=== PATIENT | male | born 1990 | race Caucasian/White ===

== ENCOUNTER 2016-12-16 05:30 | Emergency (ER) | payer OTHER ==
[~2016-12-16] VITALS: Ht 182.9 cm; Wt 75.9 kg
[2016-12-16 05:30] VITALS: TEMP 37; Ht 182.9 cm; Wt 75.9 kg
[~2016-12-16 05:30] MED LIST: DIPH25CA37 PO; MELA1TAB3 PO; MULT-506 PO; OMEGCAP2 PO
[2016-12-16 06:11] LABS: HEMATOCRIT 47.1 % (42-52); MEAN CORPUSCULAR HEMOGLOBIN 32.7 pg (25-34); MEAN CORPUSCULAR HGB CONC 34.8 g/dl (32-36); MEAN PLATELET VOLUME 9.7 fL (7.4-10.4); PLATELET COUNT 214 K/uL (130-400); RED BLOOD COUNT 5.01 M/uL (4.7-6.1); WHITE BLOOD COUNT 7.96 K/uL (4.8-10.8)
--- NOTE | 2016-12-16 06:12 | EMERGENCY ROOM VISIT NOTE ---
History Report prepared by Raquel: Zuleika Alvarado Under the Supervision of: Dr. Sobeida Martinez D.O. First contact with patient: 05:44 Chief Complaint: ALTERED MENTAL STATUS Stated Complaint: ALTERED MENTAL STATUS History of Present Illness The patient is a 26 year old male who presents to the Emergency Room with complaints of a sudden altered mental status that occurred prior to arrival. The patient states that he is unsure what happened this morning. He states that he used LSD this morning, noting that he has used it in the past. The patient denies any other drug use this evening. He does note alcohol use this morning. The patient denies any trauma. He states that this evening he was playing video games. The patient states that he is unemployed and does not go to school. Per EMS the patient's fiance was concerned about her safety around the patient so she called 911 for further assistance. EMS notes that the patient was out of control and abusive towards his fiance. EMS reports that the patient's PBT was below .08 and appeared to be under the influence of other drugs. EMS additionally notes that the patient's fiance was not willing to stay with the patient during his altered state. The patient states that he does not believe he was abusive towards his fiance this evening. He denies any abdominal pain or any other pain. The history is limited due to the patient's drug intoxication. Source of History: patient, EMS History Limited By: intoxication (drug) Onset: prior to arrival Position: other (global) Quality: other (altered mental status) Timing: other (sudden) Review of Systems The history and ROS are limited secondary to the patient's drug intoxication. Past Medical & Surgical Medical history is unobtainable secondary to the patient's drug intoxication. Family History The family history is unobtainable secondary to the patient's drug intoxication. Social History Smoking Status: Never Smoker Drug Use: other (LSD) Marital Status: in relationship Occupation Status: unemployed Current/Historical Medications No Active Prescriptions or Reported Meds Allergies Coded Allergies: NO KNOWN DRUG ALLERGIES (Verified Allergy, Unknown, ., 08/28/15) Physical Exam Vital Signs Date Time Temp Pulse Resp B/P Pulse Ox O2 Delivery O2 Flow Rate FiO2 12/16/16 06:41 103 18 162/112 98 Room Air 12/16/16 05:30 37.0 120 18 174/125 98 Room Air Physical Exam General: Slightly confused, smells of alcohol, cooperative HEENT: Head - normocephalic and atraumatic Pupils 6 mm and reactive to light. Extraocular eye muscles are intact, and sclera are anicteric. Nose - moist nasal mucosa without discharge. Mouth - moist buccal mucosa. Oropharynx is nonerythematous and there is no tonsillar exudate or edema noted. Neck: Supple; no JVD, nuchal rigidity, cervical lymphadenopathy. Heart: Tachycardic rate and regular rhythm. There is a normal S1 and S2 with no murmurs, clicks, or gallops appreciated. Lungs: Clear to auscultation bilaterally with no wheezes, rales, or rhonchi. Abdomen: Soft, completely nontender, nondistended, with good bowel sounds. There are no palpable pulsatile masses or hepatosplenomegaly. There is no guarding, rigidity, or rebound noted. Extremities: No evidence of cyanosis, clubbing, or edema. There are easily palpable peripheral pulses. Skin: Multiple tattoos, warm and dry with good turgor and no rashes. Medical Decision & Procedures Laboratory Results 12/16/16 06:00 12/16/16 06:00 Test 12/16/16 06:00 Red Blood Count 5.01 M/uL (4.7-6.1) Mean Corpuscular Volume 94.0 fL (80-100) Mean Corpuscular Hemoglobin 32.7 pg (25-34) Mean Corpuscular Hemoglobin Concent 34.8 g/dl (32-36) RDW Standard Deviation 41.4 fL (36.4-46.3) RDW Coefficient of Variation 12.1 % (11.5-14.5) Mean Platelet Volume 9.7 fL (7.4-10.4) Anion Gap 8.0 mmol/L (3-11) Est Creatinine Clear Calc Drug Dose 120.3 ml/min Estimated GFR () 120.5 Estimated GFR (Non- 103.9 BUN/Creatinine Ratio 9.9 (10-20) Calcium Level 8.7 mg/dl (8.5-10.1) Salicylates Level < 1.7 mg/dl (2.8-20) Urine Opiates Screen NEG (NEG) Urine Methadone, Qualitative NEG (NEG) Acetaminophen Level < 2 ug/ml (10-30) Urine Barbiturates NEG (NEG) Ur Amphetamine/Methamphetamine NEG (NEG) MDMA (Ecstasy) Screen NEG (NEG) Urine Benzodiazepines Screen NEG (NEG) Urine Cocaine Metabolite NEG (NEG) Urine Marijuana (THC) NEG (NEG) Ethyl Alcohol mg/dL 76.0 mg/dl (0-3) Laboratory results per my review. ED Course 0549: Past medical records reviewed. The patient was evaluated in room B4B. A complete history and physical exam was performed. Labs were drawn as above 0629: I reevaluated the patient and he is much more coherent. His tox screen came back positive for PCP and he states that he took 3 MEO-PCP this evening that he buys online. The patient states that he developed a different high than he typically does. With further questioning, the patient admits to being depressed and having suicidal thoughts at times but states that he would never act upon them. I discussed the case with the pillowcase folder and the patient will be evaluated from a psychiatric standpoint. 0630: The patient was signed out to Dr. Rausch at change of shift. Medical Decision The patient is a 26 year old male who presents to the ED with an altered mental status. Differential diagnosis includes alcohol intoxication, LSD abuse, other drug use, hypoglycemia, head injury. Lab interpretation: alcohol was 76, tox screen positive for PCP, Tylenol and aspirin levels are negative, normal renal function, glucose 111, normal white blood cell count. This is a 26-year-old male patient who was brought to the emergency department tonight after taking PCP and acting erratically. He denies any trauma. Initially he described using LSD. When his tox screen came back positive for PCP, he explained that he was using PCP that he purchased on the Internet. The patient was cooperative here in the emergency department. He does describe being depressed and having some suicidal thoughts but no plans to act upon them. At this time, the patient will be evaluated by psychiatry. The case was signed out to Dr. John. Impression Primary Impression: Drug overdose Scribe Attestation The scribe's documentation has been prepared under my direction and personally reviewed by me in its entirety. I confirm that the note above accurately reflects all work, treatment, procedures, and medical decision making performed by me. Departure Information Dispostion Still a Patient Prescriptions No Active Prescriptions or Reported Meds Referrals No Doctor, Assigned (PCP)
[2016-12-16 06:32] LABS: BUN/CREATININE RATIO 9.9 (10-20); CALCIUM 8.7 mg/dl (8.5-10.1); CREATININE 0.99 mg/dl (0.60-1.40); POTASSIUM 3.6 mmol/L (3.5-5.1)
[2016-12-16 06:33] LABS: ACETAMINOPHEN < 2 ug/ml (10-30)
[2016-12-16 06:34] LABS: BENZODIAZEPINE, URINE NEG (NEG); COCAINE,URINE NEG (NEG); PHENCYCLIDINE, URINE POS (NEG)
--- NOTE | 2016-12-16 07:26 | EMERGENCY ROOM VISIT NOTE ---
ED Visit Note First contact with patient: 07:07 The patient was taken in signout from Dr. Martinez at the change of shift. Please see that note for details. The patient was pending a mental health evaluation. The patient was using alcohol and PCP last night. He made some generalized statements that prompted the psychiatric evaluation. The patient had cleared his intoxication. He is evaluated by mental health and was not suicidal or homicidal. He felt well. His significant other supported his statements. The patient feels comfortable with the plan and was discharged in stable condition. He was counseled not to do drugs.
[2016-12-16 10:45] VITALS: BP 154/101; PULSE 89; O2SAT 99
[2016-12-18 19:22] LABS: PHENCYCLIDINE GC/MS NEGATIVE NG/ML (CUTOFF=25)
== END 2016-12-16 10:50 | disposition home or self-care (01) ==
LOC: EDBD 05:30 → C.EDB 05:32 → C.EDA 10:50
DX: T40.991A Poisoning by other psychodysleptics [hallucinogens], accidental (unintentional), initial encounter (principal); X58.XXXA Exposure to other specified factors, initial encounter